=== PATIENT | female | born 2000 | race Asian ===

== ENCOUNTER 2024-06-12 22:27 | Outpatient (CLI) | payer OTHER | END 2024-06-12 23:59 | disposition critical access hospital (66) | LOC: EMS 22:27 | DX: T78.1XXA Other adverse food reactions, not elsewhere classified, initial encounter (principal); R06.02 Shortness of breath; X58.XXXA Exposure to other specified factors, initial encounter | CPT/HCPCS: A0425; A0427 ==

== ENCOUNTER 2024-06-12 22:56 | Emergency (ER) | payer OTHER ==
--- NOTE | 2024-06-12 22:52 | ED Physician Documentation ---
History of Present Illness - Stated complaint Stated Complaint: ALLERGIC REACTION - History obtained from History obtained from: Patient, EMS - Additonal information Additional information: BIBA. Patient c/o rapid onset of dyspnea, sensation of throat constricting. This started at approximately 10 PM tonight shortly after eating dip at a gathering. Patient recognized these symptoms as similar to previous allergic reactions and thus self-administered epi-pen x 2 with eventual improvement. By the time EMS arrived, patient was in NAD and EMS reports unremarkable exam, stable vital signs. EMS unable to establish IV and thus gave 50mg IM benadryl en route with further improvement in symptoms per patient. Patient denies lightheadedness, rash, pruritis, wheezing. PD PAST MEDICAL HISTORY - Past Medical History Past Medical History: No - Present Medications Home Medications: Ambulatory Orders Medication Instructions Recorded Confirmed Adalimumab [Humira] 40 mg IM 06/12/24 Amitriptyline [Elavil] 50 mg PO HS 06/12/24 06/12/24 Venlafaxine HCl [Effexor Xr] 1 cap PO DAILY 06/12/24 06/12/24 Ondansetron Odt [Zofran Odt] 4 mg TL Q6H PRN #10 tablet 06/13/24 predniSONE [Deltasone] 40 mg PO DAILY 4 Days #8 tablet 06/13/24 - Allergies Allergies/Adverse Reactions: Allergies Allergy/AdvReac Type Severity Reaction Status Date / Time gluten Allergy Anaphylaxis Verified 06/12/24 23:10 ipratropium [From Atrovent] Allergy Anaphylaxis Verified 06/12/24 23:49 peanut Allergy Anaphylaxis Verified 06/12/24 23:09 rye grass Allergy Anaphylaxis Verified 06/12/24 23:12 sesame seed Allergy Anaphylaxis Verified 06/12/24 23:10 shellfish derived Allergy Anaphylaxis Verified 06/12/24 23:10 tree nut Allergy Anaphylaxis Verified 06/12/24 23:11 wheat Allergy Anaphylaxis Verified 06/12/24 23:09 PD ED PE NORMAL - Vitals Vital signs reviewed: Yes - General General: Alert and oriented X 3, No acute distress, Well developed/nourished - HEENT HEENT: Pharynx benign (no gini/intraoral swelling; airway widely patent) - Cardiac Cardiac: RRR, No murmur - Respiratory Respiratory: No respiratory distress, Clear bilaterally - Derm Derm: Normal color, Warm and dry, No rash Results - Vitals Vitals: Oxygen O2 Source Room air PD Medical Decision Making - ED course Complexity details: considered differential, d/w patient ED course: Patient remained asymptomatic during ED stay. Given 10mg PO decadron, 20mg PO pepcid and then d/c. Prior to d/c, she reported mild nausea and thus given 4mg TL zofran. Prescriptions for zofran and 4 days of prednisone 40mg QD are elec tronically submitted to patient's pharmacy of choice. Departure - Departure Disposition: 01 Home, Self Care Clinical Impression: Allergic reaction Qualifiers: Encounter type: initial encounter Qualified Code(s): T78.40XA - Allergy, unspecified, initial encounter Condition: Good Instructions: ED Allergic React Food Prescriptions: predniSONE [Deltasone] 40 mg PO DAILY 4 Days #8 tablet Ondansetron Odt [Zofran Odt] 4 mg TL Q6H PRN #10 tablet PRN Reason: Nausea / Vomiting Comments: I have electronically submitted prescriptions for ondansetron (antinausea medication) and prednisone (steroid) to the [facility] in [place]. Discharge Date/Time: 06/13/24 02:05
[2024-06-12] MEDS: FAMOTIDINE 20 MG/2 ML VIAL IVP STA (23:54)
[2024-06-12] MEDS: methylPREDNISolone SUCCINATE 125 MG/2 ML VIAL IVP STA (23:55)
[2024-06-13] MEDS: CHERRY SYRUP 10 ML UDC PO ONE (00:34)
[2024-06-13] MEDS: FAMOTIDINE 20 MG TABLET PO STA (00:34)
[2024-06-13] MEDS: DEXAMETHASONE 10 MG/ML VIAL PO STA (00:34)
[2024-06-13] MEDS: ONDANSETRON ODT 4 MG TABLET TL STA (00:34)
[2024-06-13] MEDS: ONDANSETRON ODT 4 MG Prepack 2 TL PRN (01:55)
[2024-06-13 02:01] VITALS: BP 112/74; O2SAT 100
== END 2024-06-13 02:05 | disposition home or self-care (01) ==
LOC: ED 22:56
DX: T78.1XXA Other adverse food reactions, not elsewhere classified, initial encounter (principal); X58.XXXA Exposure to other specified factors, initial encounter; R11.0 Nausea; Z79.899 Other long term (current) drug therapy
CPT/HCPCS: 99283; 99284; A9270; Q0162